=== PATIENT | female | born 1985 | race African-American/Black ===

== ENCOUNTER 2020-12-27 00:17 | Emergency (ER) | payer MEDICAID ==
[~2020-12-27] VITALS: Ht 167.6 cm; Wt 54.0 kg
[2020-12-27 01:18] VITALS: BP 137/70
== END 2020-12-27 01:19 ==
LOC: ER 00:17
DX: N93.9 Abnormal uterine and vaginal bleeding, unspecified (principal); B20 Human immunodeficiency virus [HIV] disease
CPT/HCPCS: 99283